=== PATIENT | female | born 1990 | race Caucasian/White ===

== ENCOUNTER 2017-10-18 23:38 | Emergency (ER) | payer MEDICAID, OTHER ==
[~2017-10-18] VITALS: Ht 170.2 cm; Wt 84.0 kg
[~2017-10-18 23:38] MED LIST: FERR-43 PO; FOLI-43 PO; PREN-55 PO
[2017-10-19] MEDS ORDERED: FAMOTIDINE 20MG/2ML VIAL IV STA (04:07)
[2017-10-19] MEDS ORDERED: SODIUM CHLORIDE 0.9% 1,000 ML IV ONE (04:07)
[2017-10-19] MEDS ORDERED: MORPHINE SULFATE 4 MG/ML CPJ (NOT FOR IM USE) IV STA (04:07)
[2017-10-19] MEDS ORDERED: ONDANSETRON HCL 4MG/2ML VIAL IV STA (04:07)
[2017-10-19 04:51] LABS: BASOPHILS % 0.4 % (0.0-2.0); EOSINOPHILS % 0.8 % (0.0-5.0); HEMATOCRIT. 39.5 % (36.0-48.0); HEMOGLOBIN. 13.4 g/dL (12.0-16.0); LYMPHOCYTES % 19.8 % (20.0-50.0); MEAN CORPUSCULAR HEMOGLOBIN 31.5 pg (28.0-32.0); MEAN CORPUSCULAR VOLUME 92.9 fL (81.0-99.0); MEAN PLATELET VOLUME 9.7 fl (7.4-10.4); MONOCYTES % 5.5 % (2.0-8.0); NEUTROPHILS % 73.5 % (40.0-76.0); PLATELET 268 x1000/uL (130-400); RED BLOOD CELL COUNT 4.26 mill/uL (4.2-5.4); RED CELL DISTRIBUTION WIDTH 13.6 % (11.6-14.6)
[2017-10-19 04:58] LABS: CARBON DIOXIDE 27 mEq/L (21-32); CHLORIDE 105 mEq/L (98-107); ETHANOL BLOOD < 10 mg/dL
[2017-10-19 07:25] VITALS: BP 103/53
[2017-10-19 09:41] LABS: CLARITY URINE CLEAR (CLEAR); COLOR URINE YELLOW (YELLOW); KETONES URINE NEGATIVE (NEGATIVE); LEUKOCYTE ESTERASE URINE NEGATIVE (NEGATIVE); NITRITE URINE NEGATIVE (NEGATIVE); OCCULT BLOOD URINE NEGATIVE (NEGATIVE); PROTEIN URINE NEGATIVE (NEGATIVE); SPECIFIC GRAVITY URINE 1.022 (1.005-1.030); UROBILINOGEN URINE 0.2 E.U./dL (0.2-1.0)
== END 2017-10-19 07:38 | disposition home or self-care (01) ==
LOC: ER 23:38
DX: K29.00 Acute gastritis without bleeding (principal); R10.13 Epigastric pain
CPT/HCPCS: 36415; 80053; 81003; 83690; 85025; 96361; 96374; 96375; 99284; G0482; J2270; J2405; J3490; Z7610; J7030

== ENCOUNTER 2018-12-13 21:09 | Emergency (ER) | payer MEDICAID, OTHER ==
[~2018-12-13] VITALS: Ht 170.2 cm; Wt 84.0 kg
[2018-12-13 21:17] VITALS: BP 118/76
[2018-12-13 22:10] LABS: CLARITY URINE CLEAR (CLEAR); COLOR URINE YELLOW (YELLOW); KETONES URINE NEGATIVE (NEGATIVE); LEUKOCYTE ESTERASE URINE 1+ (NEGATIVE); NITRITE URINE NEGATIVE (NEGATIVE); OCCULT BLOOD URINE 1+ (NEGATIVE); PH URINE 5.5 (4.5-8.0); PROTEIN URINE NEGATIVE (NEGATIVE); SPECIFIC GRAVITY URINE 1.012 (1.005-1.030); UROBILINOGEN URINE 0.2 E.U./dL (0.2-1.0)
== END 2018-12-14 01:45 | disposition left against medical advice (07) ==
LOC: ER 21:09
DX: Z53.21 Procedure and treatment not carried out due to patient leaving prior to being seen by health care provider (principal); N89.8 Other specified noninflammatory disorders of vagina
CPT/HCPCS: 81025

== ENCOUNTER 2019-01-18 20:41 | Emergency (ER) | payer MEDICAID ==
[~2019-01-18] VITALS: Ht 170.2 cm; Wt 87.7 kg
[2019-01-18 23:16] VITALS: BP 124/78
== END 2019-01-18 23:21 | disposition home or self-care (01) ==
LOC: ER 21:14
DX: L25.9 Unspecified contact dermatitis, unspecified cause (principal); L85.8 Other specified epidermal thickening
CPT/HCPCS: 99283